=== PATIENT | female | born 1990 | race Caucasian/White ===

== ENCOUNTER 2018-07-29 14:55 | Emergency (ER) | payer OTHER ==
[~2018-07-29] VITALS: Ht 160 cm; Wt 63.5 kg
[2018-07-29 14:59] VITALS: BP 120/66
[2018-07-29 16:01] LABS: APPEARANCE,URINE CLEAR (CLEAR); BASOPHILS # (AUTO) 0.1 K/uL (0.00-0.22); BASOPHILS % (AUTO) 0.5 % (0.0-2.0); BILIRUBIN,URINE NEGATIVE (NEGATIVE); BLOOD, URINE NEGATIVE (NEGATIVE); COLOR,URINE YELLOW (YELLOW); EOSINOPHILS # (AUTO) 0.2 K/uL (0-0.4); EOSINOPHILS % (AUTO) 1.8 % (0.0-4.0); HEMOGLOBIN 14.2 g/dL (12.0-16.0); LEUKOCYTE ESTERASE ,URINE NEGATIVE (NEGATIVE); LYMPHOCYTES # (AUTO) 1.8 K/uL (2.5-16.5); LYMPHOCYTES % (AUTO) 18.3 % (20.5-51.1); MEAN CORPUSCULAR HEMOGLOBIN 30 pg (27-31); MEAN CORPUSCULAR HGB CONC 34 g/dL (33-37); MONOCYTES # (AUTO) 0.5 K/uL (0.8-1.0); NEUTROPHILS # (AUTO) 7.5 K/uL (1.8-7.7); NEUTROPHILS % (AUTO) 74.4 % (42.2-75.2); NITRITE, URINE NEGATIVE (NEGATIVE); PLATELET COUNT (AUTO) 345 K/uL (140-450); RED BLOOD CELL COUNT(AUTO) 4.78 MIL/uL (4.20-5.40); RED CELL DISTRIBUTION WIDTH 13.2 % (11.6-13.7); UGLUCOSE NEGATIVE (NEGATIVE)
[2018-07-29] MEDS: KETOROLAC 15 MG/ML VIAL IVP ONE (16:06)
[2018-07-29 16:21] LABS: ANION GAP 10.9 (8-16); CARBON DIOXIDE 25.9 mmol/L (21-32); CREATININE 0.7 mg/dL (0.6-1.3); POTASSIUM 3.8 mmol/L (3.5-5.1)
[2018-07-29 16:27] LABS: ALBUMIN 4.3 g/dL (3.4-5.0); TOTAL BILIRUBIN 0.4 mg/dL (0.0-1.0)
[2018-07-29 17:45] VITALS: BP 120/66
== END 2018-07-29 17:45 | disposition home or self-care (01) ==
LOC: MED 14:55
DX: K80.20 Calculus of gallbladder without cholecystitis without obstruction (principal); Z98.890 Other specified postprocedural states
CPT/HCPCS: 36415; 76705; 80053; 81003; 81025; 83690; 85025; 96374; 99285; J1885; Q0092

== ENCOUNTER 2019-08-08 10:29 | Emergency (ER) | payer OTHER ==
[~2019-08-08] VITALS: Ht 160 cm; Wt 63.5 kg
[2019-08-08 10:30] VITALS: BP 114/68
--- NOTE | 2019-08-08 10:34 | NUR ---
PATIENT AMBULATED TO BED 9
--- NOTE | 2019-08-08 10:38 | NUR ---
PATIENT PRESENTS TO ED WITH C/O NECK PAIN X TODAY. DENIES INJURY. PATIENT STATES PAIN OF 10/10 WHEN TURN TO LEFT SIDE AT THIS TIME; VSS; PATIENT POSITIONED FOR COMFORT; HOB ELEVATED; BEDRAILS UP X2; BED DOWN. ER MD MADE AWARE OF PT STATUS.
[2019-08-08] MEDS ORDERED: KETOROLAC 60 MG/2 ML VIAL IM ONE (10:40)
--- NOTE | 2019-08-08 11:25 | NUR ---
Patient being evaluated by physician at bedside.
[2019-08-08 11:36] VITALS: BP 114/68
--- NOTE | 2019-08-08 11:36 | NUR ---
Patient discharged with v/s stable. Written and verbal after care instructions given and explained. Rx of MOTRIN given. Patient educated on indication of medication including possible reaction and side effects.All questions addressed prior to discharge. ID band removed. Patient advised to follow up with PMD.
== END 2019-08-08 11:46 | disposition home or self-care (01) ==
LOC: MED 10:29
DX: S13.4XXA Sprain of ligaments of cervical spine, initial encounter (principal); R55 Syncope and collapse; Z98.890 Other specified postprocedural states; X58.XXXA Exposure to other specified factors, initial encounter; Y93.E1 Activity, personal bathing and showering; Y92.89 Other specified places as the place of occurrence of the external cause; Y99.8 Other external cause status
CPT/HCPCS: 96372; 99283; J1885